=== PATIENT | male | born 1945 | race Caucasian/White ===

== ENCOUNTER 2016-06-30 10:45 | Emergency (ER) | payer OTHER ==
[~2016-06-30] VITALS: Ht 167.6 cm; Wt 70.0 kg
[~2016-06-30 10:45] MED LIST: CIPR-255 PO
[2016-06-30 10:51] VITALS: TEMP 36.8; Ht 167.6 cm; Wt 70.0 kg
[2016-06-30] MEDS ORDERED: METO50TA16 PO (11:14)
[2016-06-30] MEDS ORDERED: TRAM-10 PO (11:14)
--- NOTE | 2016-06-30 11:56 | DIAGNOSTIC IMAGING REPORT ---
RIGHT KNEE 3 VIEWS CLINICAL HISTORY: Right knee pain COMPARISON: None. DISCUSSION: No acute fractures are visualized. There is a small joint effusion. There is a 3.7 cm mass within the distal femoral metaphysis demonstrates speckled calcification. This likely represents a chondroid lesion. There are osteoarthritic changes present most pronounced within the lateral joint compartment. IMPRESSION: 1. No acute fractures 2. Osteoarthritis 3. Small joint effusion 4. 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 06/30/2016 11:54 AM Dictated Date/Time: 06/30/2016 11:53 AM
--- NOTE | 2016-06-30 13:42 | DIAGNOSTIC IMAGING REPORT ---
RIGHT KNEE CT CT DOSE: 337.01 mGy.cm HISTORY: Right proximal femoral lesion Right TECHNIQUE: Multiaxial CT images of the right knee were performed and reformatted in the sagittal and coronal plane without the use of contrast. COMPARISON: Right knee 06/30/2016. FINDINGS: No fracture or dislocation within the right knee. Small right knee effusion. Small popliteal cyst. Moderate cartilage space narrowing within the medial compartment of the knee. There are tricompartmental marginal osteophytes. Focal ossific density within the medial collateral ligament is likely due to old injury. There is also moderate cartilage space narrowing within the lateral patellofemoral compartment. Mild cartilage space narrowing within the lateral compartment of the knee. Redemonstration of the 3.6 x 2.7 x 2.4 cm lesion at the distal metaphysis of the right femur. There is a calcified internal matrix demonstrated by rings and arcs. There is no associated cortical breakthrough, soft tissue mass, or abnormal periosteal reaction. IMPRESSION: 1. Redemonstration of the 3.7 x 2.7 x 2.4 cm chondroid lesion within the distal metaphysis of the right femur. There is no associated cortical breakthrough, soft tissue mass, or abnormal periosteal reaction. This could represent an enchondroma or possibly a chondrosarcoma if the patient is experiencing pain at this location. Orthopedic consultation on a nonemergent basis is recommended. 2. No acute fracture or dislocation within the right knee. 3. Small knee effusion. 4. Small popliteal cyst. 5. Mild/moderate tricompartmental osteoarthritis. Electronically signed by: Darwin Joel M.D. 06/30/2016 1:41 PM Dictated Date/Time: 06/30/2016 1:33 PM
--- NOTE | 2016-06-30 13:49 | DIAGNOSTIC IMAGING REPORT ---
ULTRASOUND RIGHT VENOUS DOPP LOWER EXT UNILAT CLINICAL HISTORY: Right popliteal pain. COMPARISON STUDY: No previous studies for comparison. FINDINGS: Real-time and color flow Doppler imaging were performed. Flow was seen within the femoral, popliteal and calf veins with no intraluminal thrombus demonstrated. The saphenous vein is patent. As a small right popliteal cyst measuring 35 x 8 x 25 mm. IMPRESSION: 1. No evidence of right lower extremity DVT 2. Small right popliteal cyst Electronically signed by: Dontrell Yarbrough M.D. 06/30/2016 1:48 PM Dictated Date/Time: 06/30/2016 1:48 PM
--- NOTE | 2016-06-30 14:17 | EMERGENCY ROOM VISIT NOTE ---
History First contact with patient: 11:11 Chief Complaint: LEG PAIN,LEG INJURY Stated Complaint: RIGHT LEG PAIN History of Present Illness The patient is a 70 year old male who presents to the Emergency Room via private vehicle coming by son-in-law with complaints of "right leg pain". The patient presents with pain behind the right knee. It was stated that a week or so ago the patient was walking and heard a clicking noise in the right knee and it began hurting. He then picked up a 5 gallon Bucket and the pain has worsened behind the right knee. At rest the pain is very minimal but with weightbearing or movement particularly extension the right popliteal region is very painful. Patient denies any history of blood clots, chest pain, shortness of breath, fevers, chills, numbness or tingling in the distal extremity or previously seeing orthopedic surgeon. The pain is rated as a 10/10. The urine is not dark. Review of Systems A complete 10-point Review of Systems was discussed with the patient, with pertinent positives and negatives listed in the History of Present Illness. All remaining Review of Systems questions can be considered negative unless otherwise specified. Past Medical/Surgical History Medical Problems: (1) Acute urinary tract infection (2) Kidney stone (3) Tonsillectomy Family History Diabetes, heart disease, high blood pressure, cancer Social History Smoking Status: Current Every Day Smoker Marital Status: Housing Status: lives with family Occupation Status: unemployed Current/Historical Medications Scheduled Metoprolol Tartrate (Lopressor) (Lopressor), 50 MG PO DAILY Scheduled PRN Oxycodone Ir (Roxicodone Ir), 1-2 TAB PO Q4H PRN for Pain Tramadol (Ultram), 50 MG PO BID PRN for Pain Allergies Coded Allergies: No Known Allergies (Unverified , 06/30/16) Physical Exam Vital Signs Date Time Temp Pulse Resp B/P Pulse Ox O2 Delivery O2 Flow Rate FiO2 06/30/16 14:43 81 16 140/83 93 06/30/16 13:58 81 16 140/83 93 Room Air 06/30/16 10:51 36.8 87 17 143/87 94 Room Air Physical Exam VITAL SIGNS - Vital signs and nursing notes were reviewed. Patient is afebrile, normotensive, non-tachycardic and is saturating well on room air 94%. GENERAL -70-year-old male appearing his stated age who is in no acute distress. Communicates well with provider and answers questions appropriately. Patient does not speak fluent Qatari and therefore his son-in-law translates much of the visit. SKIN - Without rashes. Skin overlying the right knee is unremarkable. HEAD - NC/AT. EXTREMITIES - No clubbing or peripheral cyanosis. No pretibial edema present. Vascularly intact in the left lower extremity. +5/5 strength noted in UE/LE bilaterally. There is increased tenderness with extension of the right knee. No laxity noted. No erythema, edema or signs of infection. NEUROLOGIC -no neurologic deficits. PSYCH - Pt is very pleasant and interacts well with examiner. Medical Decision & Procedures ER Provider Diagnostic Interpretation: RIGHT KNEE 3 VIEWS CLINICAL HISTORY: Right knee pain COMPARISON: None. DISCUSSION: No acute fractures are visualized. There is a small joint effusion. There is a 3.7 cm mass within the distal femoral metaphysis demonstrates speckled calcification. This likely represents a chondroid lesion. There are osteoarthritic changes present most pronounced within the lateral joint compartment. IMPRESSION: 1. No acute fractures 2. Osteoarthritis 3. Small joint effusion 4. 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 06/30/2016 11:54 AM Dictated Date/Time: 06/30/2016 11:53 AM ULTRASOUND RIGHT VENOUS DOPP LOWER EXT UNILAT CLINICAL HISTORY: Right popliteal pain. COMPARISON STUDY: No previous studies for comparison. FINDINGS: Real-time and color flow Doppler imaging were performed. Flow was seen within the femoral, popliteal and calf veins with no intraluminal thrombus demonstrated. The saphenous vein is patent. As a small right popliteal cyst measuring 35 x 8 x 25 mm. IMPRESSION: 1. No evidence of right lower extremity DVT 2. Small right popliteal cyst Electronically signed by: Dontrell Yarbrough M.D. 06/30/2016 1:48 PM Dictated Date/Time: 06/30/2016 1:[address] DOSE: 337.01 mGy.cm HISTORY: Right proximal femoral lesion Right TECHNIQUE: Multiaxial CT images of the right knee were performed and reformatted in the sagittal and coronal plane without the use of contrast. COMPARISON: Right knee 06/30/2016. FINDINGS: No fracture or dislocation within the right knee. Small right knee effusion. Small popliteal cyst. Moderate cartilage space narrowing within the medial compartment of the knee. There are tricompartmental marginal osteophytes. Focal ossific density within the medial collateral ligament is likely due to old injury. There is also moderate cartilage space narrowing within the lateral patellofemoral compartment. Mild cartilage space narrowing within the lateral compartment of the knee. Redemonstration of the 3.6 x 2.7 x 2.4 cm lesion at the distal metaphysis of the right femur. There is a calcified internal matrix demonstrated by rings and arcs. There is no associated cortical breakthrough, soft tissue mass, or abnormal periosteal reaction. IMPRESSION: 1. Redemonstration of the 3.7 x 2.7 x 2.4 cm chondroid lesion within the distal metaphysis of the right femur. There is no associated cortical breakthrough, soft tissue mass, or abnormal periosteal reaction. This could represent an enchondroma or possibly a chondrosarcoma if the patient is experiencing pain at this location. Orthopedic consultation on a nonemergent basis is recommended. 2. No acute fracture or dislocation within the right knee. 3. Small knee effusion. 4. Small popliteal cyst. 5. Mild/moderate tricompartmental osteoarthritis. Electronically signed by: Darwin Joel M.D. 06/30/2016 1:41 PM Dictated Date/Time: 06/30/2016 1:33 PM Medical Decision Patient was seen and evaluated as above. After obtaining a thorough history and physical examination radiographs the right knee was obtained. Patient denied pain medication. His exam was consistent with either a ligamentous injury or potential strain. I do not suspect any bone involvement. Radiograph revealed questionable. Lesion. CT was obtained for further identification. Results as above. Ultrasound was also obtained to rule out DVT. No DVT. The case was discussed with my attending. Due to the nonemergent follow-up basis I do believe the patient can be referred and was provided the number to call later today to follow-up with orthopedics. The patient was provided with a short-term prescription of pain medication. He was fitted with a knee immobilizer and given crutches to help remain nonweightbearing and to help heal. The patient is to follow up regarding the lesion and leg. I do not suspect any emergent or emergent surgical nature to the patient's pain at this immediate time. They were educated upon management of these findings, had questions answered prior to discharge and were discharged home in good condition. In the evaluation and treatment of this patient, the following differential diagnoses were considered: Patellar Fracture, Tibial Plateau Fracture, Distal Femur Fracture, ACL Injury, PCL Injury, Collateral Ligament Injury, Pes Anserine Bursitis, Ma[place]uve Fracture. [place] Drug Monitoring Program Search Results: patient reviewed within database, no issues identified Impression Primary Impression: Leg pain, right Departure Information Dispostion Home / Self-Care Condition GOOD Prescriptions Oxycodone Ir (Roxicodone Ir) 5 Mg Tab 1-2 TAB PO Q4H Y for Pain, #15 TAB For Initial Treatment Prov: Brodie Bearden, [place] 06/30/16 Referrals Santos Barton M.D. (PCP) Ahsan Earl D.O. Patient Instructions My [facility] Additional Instructions You have been treated in the Emergency Department for Knee Pain. You have been prescribed Oxy IR to be used for pain control. This is a narcotic medication. You cannot drive or consume alcohol while on this medicine. This medicine should only be used for pain that cannot be controlled with over-the- counter pain medicines. For pain control, you can use the following [id number] medicines (if >12 yo): - Regular strength (325mg/tab) Tylenol (acetaminophen) 2 tabs every 4-6 hours as needed. Do not exceed 12 tablets in a 24 hour period. Avoid taking more than 4 grams (4000 mg) of Tylenol per day. This includes any other sources of acetaminophen you may take on a regular basis. - Regular strength (200 mg/tab) Advil (ibuprofen) 1-2 tabs every 4-6 hours as needed. Do not exceed a dose of 3200 mg per day. If this is a recent injury (<24 hrs), ice can be applied to the area of pain for the first 3 days to help decrease pain and inflammation. Ice massages can be performed by freezing water in a paper cup, peeling back the cup to expose the ice and then massaging over the affected area. You have been provided the number for an Orthopaedic Surgeon. You should call this number as soon as possible to establish a follow-up visit from today's Emergency Department visit. (Dr. Earl) CT FINDINGS: 1. Redemonstration of the 3.7 x 2.7 x 2.4 cm chondroid lesion within the distal metaphysis of the right femur. There is no associated cortical breakthrough, soft tissue mass, or abnormal periosteal reaction. This could represent an enchondroma or possibly a chondrosarcoma if the patient is experiencing pain at this location. Orthopedic consultation on a nonemergent basis is recommended. 2. No acute fracture or dislocation within the right knee. 3. Small knee effusion. 4. Small popliteal cyst. 5. Mild/moderate tricompartmental osteoarthritis. Keep the knee brace in place until cleared by Orthopedics. Use the crutches you have been provided to keep ALL weight off of the knee until weight bearing is tolerable. Return to the Emergency Department if your current symptoms worsen despite treatment course outlined above.
[2016-06-30] MEDS ORDERED: OXYC1TAB3 PO (14:18)
--- NOTE | 2016-06-30 14:18 | EMERGENCY ROOM VISIT NOTE ---
ED Visit Note First contact with patient: 11:11 Patient was seen by our PA/LETTUCE TRIMMER. I was involved in the patient's care and did evaluate the patient myself. I was involved in the care throughout the ER stay. Workup here demonstrates a lesion within the distal femur. No DVT. Nonemergent orthopedic follow-up was suggested. The patient has been referred.
[2016-06-30 14:43] VITALS: BP 140/83; PULSE 81; O2SAT 93
== END 2016-06-30 14:44 | disposition home or self-care (01) ==
LOC: C.EDB 10:47 → C.EDD 14:44
DX: M79.604 Pain in right leg (principal); F17.200 Nicotine dependence, unspecified, uncomplicated

== ENCOUNTER → 2016-08-02 | Outpatient (CLI) | payer OTHER ==
[~2016-08-02] MED LIST changes: -CIPR-255 PO; +METO50TA16 PO; +OXYC1TAB3 PO; +TRAM-10 PO
[2016-08-02 10:13] LABS: BASO % 0.4 %; BASO ABS # 0.03 K/uL (0-0.2); COMPLETE YES; EOS % 2.3 %; HEMATOCRIT 45.6 % (42-52); IG% 0.6 %; LYMPH ABS # 2.33 K/uL (1.2-3.4); MEAN CELL VOLUME 96.4 fL (80-100); MEAN CORPUSCULAR HEMOGLOBIN 32.6 pg (25-34); MEAN CORPUSCULAR HGB CONC 33.8 g/dl (32-36); MEAN PLATELET VOLUME 10.7 fL (7.4-10.4); MONO % 6.2 %; NEUT % 57.5 %; PLATELET COUNT 238 K/uL (130-400); RED BLOOD COUNT 4.73 M/uL (4.7-6.1); WHITE BLOOD COUNT 7.05 K/uL (4.8-10.8)
[2016-08-02 10:23] LABS: ESTIMATED AVERAGE GLUCOSE 108 mg/dl; HA1C FLAG Normal (Normal)
[2016-08-02 10:47] LABS: BLOOD UREA NITROGEN 16 mg/dl (7-18); CREATININE 0.95 mg/dl (0.60-1.40)
[2016-08-02 11:16] LABS: ALT/SGPT 74 U/L (12-78); BLOOD UREA NITROGEN 16 mg/dl (7-18); BUN/CREATININE RATIO 16.3 (10-20); CARBON DIOXIDE 27 mmol/L (21-32); CHLORIDE 106 mmol/L (98-107); CHOLESTEROL 217 mg/dl (0-200); CREATININE 0.95 mg/dl (0.60-1.40); GLUCOSE 109 mg/dl (70-99); POTASSIUM 4.1 mmol/L (3.5-5.1); SODIUM 142 mmol/L (136-145); TRIGLYCERIDES 257 mg/dl (0-150); VERY LOW DENSITY LIPOPROT CALC 51 mg/dl
[2016-08-02 11:22] LABS: ALKALINE PHOSPHATASE 77 U/L (45-117); AST/SGOT 47 U/L (15-37); CHOLESTEROL/HDL RATIO 7.5; HDL CHOLESTEROL 29 mg/dl; LDL CHOLESTEROL CALCULATED 137 mg/dl
== END | disposition home or self-care (01) ==
LOC: C.LAB1850 09:27
PROVIDERS: ATTEND Internal Medicine
DX: Z00.00 Encounter for general adult medical examination without abnormal findings (principal); M25.561 Pain in right knee; Z11.59 Encounter for screening for other viral diseases; I10 Essential (primary) hypertension; E78.5 Hyperlipidemia, unspecified; R73.01 Impaired fasting glucose; E53.8 Deficiency of other specified B group vitamins; Z12.5 Encounter for screening for malignant neoplasm of prostate

== ENCOUNTER → 2017-09-26 | Outpatient (CLI) | payer OTHER ==
[~2017-09-26] MED LIST changes: -OXYC1TAB3 PO
[2017-09-26 10:08] LABS: HEMOGLOBIN A1C 5.7 % (4.5-5.6)
[2017-09-26 10:12] LABS: ALBUMIN 3.9 gm/dl (3.4-5.0); ALT/SGPT 97 U/L (12-78); AST/SGOT 70 U/L (15-37); BLOOD UREA NITROGEN 12 mg/dl (7-18); CALCIUM 9.2 mg/dl (8.5-10.1); CARBON DIOXIDE 28 mmol/L (21-32); GLUCOSE 133 mg/dl (70-99); POTASSIUM 4.3 mmol/L (3.5-5.1); SODIUM 139 mmol/L (136-145)
[2017-09-26 10:17] LABS: ALKALINE PHOSPHATASE 96 U/L (45-117); CHOLESTEROL 239 mg/dl (0-200); LDL CHOLESTEROL CALCULATED 163 mg/dl; TOTAL PROTEIN 7.9 gm/dl (6.4-8.2)
== END | disposition home or self-care (01) ==
LOC: C.LAB1850 08:15
PROVIDERS: ATTEND Internal Medicine
DX: M47.812 Spondylosis without myelopathy or radiculopathy, cervical region (principal); R73.01 Impaired fasting glucose; E53.8 Deficiency of other specified B group vitamins; E78.5 Hyperlipidemia, unspecified; N20.0 Calculus of kidney

== ENCOUNTER → 2017-10-09 | Outpatient (CLI) | payer OTHER ==
--- NOTE | 2017-10-09 10:58 | DIAGNOSTIC IMAGING REPORT ---
ABDOMEN COMPLETE (US) CLINICAL HISTORY: N20.0 Nephrolithiasis COMPARISON STUDY: CT scan dated 10/10/2012 FINDINGS: The liver measures 19 cm in length. There is slight increase in echogenicity consistent with hepatic steatosis. No focal masses are visualized. The gallbladder is sonographically normal The pancreas is obscured by bowel gas and evaluation is nondiagnostic There is no ductal dilatation. The common bile duct measures 4 mm The spleen measures 10 cm in length. No splenic masses are visualized. The right kidney measures 11.3 cm in length. There is renal cortical thinning. There is a 5 cm parapelvic cyst. There is an additional 1 cm mid pole cyst. There is an equivocal 7 mm right renal calculus The left kidney measures 10.3 cm in length. There is an 18 mm left renal cyst. There is no hydronephrosis. There is mild cortical thinning is pronounced than on the right. There is no evidence of abdominal aortic aneurysm. IMPRESSION: 1. Suspected hepatic steatosis 2. Nondiagnostic evaluation of the pancreas 3. Normal gallbladder. No evidence of ductal dilatation 4. Renal cortical thinning most pronounced in the right. Bilateral renal cysts. 5. Equivocal 7 mm right renal calculus Electronically signed by: Dontrell Yarbrough M.D. 10/09/2017 10:57 AM Dictated Date/Time: 10/09/2017 10:53 AM
== END | disposition home or self-care (01) ==
LOC: C.ULTR 09:09
PROVIDERS: ATTEND Internal Medicine
DX: N20.0 Calculus of kidney (principal); Q61.02 Congenital multiple renal cysts